=== PATIENT | male | born 1970 | race Caucasian/White ===

== ENCOUNTER 2019-07-10 10:43 | Day surgery (SDC) | payer OTHER ==
[~2019-07-10] VITALS: Ht 185.4 cm; Wt 119.7 kg
[~2019-07-10 10:43] MED LIST: LIDOCAINE 2% INJ 100 MG/5 ML SDV (FOR ANES.) As Ordered ONE; OMEP40CA97 PO
[2019-07-10] MEDS ORDERED: fentaNYL 100 MCG/2 ML INJECTION (J3010) As Ordered ONE (12:28)
[2019-07-10] MEDS ORDERED: NS 1,000 ML IV ONE (12:30)
[2019-07-10] MEDS ORDERED: propofoL 200 MG/20 ML VIAL As Ordered ONE ×2 (13:11→13:28)
--- NOTE | 2019-07-10 13:56 | ROOR ---
Patient Name: Marino Hope Procedure Date: 07/10/2019 1:03 PM Date of : 1970 Age: 48 Room: [facility] Gender: Male Note Status: Finalized Procedure: Upper GI endoscopy Indications: Heartburn, Suspected gastro-esophageal reflux disease Providers: Bob Akbar MD Referring MD: Ric Carrera MD Requesting Provider: Medicines: Monitored Anesthesia Care Complications: No immediate complications. Procedure: Pre-Anesthesia Assessment: - Prior to the procedure, a History and Physical was performed, and patient medications and allergies were reviewed. The patient is competent. The risks and benefits of the procedure and the sedation options and risks were discussed with the patient. All questions were answered and informed consent was obtained. Patient identification and proposed procedure were verified by the physician, the nurse and the anesthesiologist in the procedure room. Mental Status Examination: alert and oriented. Airway Examination: normal oropharyngeal airway and neck mobility. Respiratory Examination: clear to auscultation. CV Examination: normal. Prophylactic Antibiotics: The patient does not require prophylactic antibiotics. Prior Anticoagulants: The patient has taken no previous anticoagulant or antiplatelet agents. ASA Grade Assessment: II - A patient with mild systemic disease. After reviewing the risks and benefits, the patient was deemed in satisfactory condition to undergo the procedure. The anesthesia plan was to use monitored anesthesia care (MAC). Immediately prior to administration of medications, the patient was re-assessed for adequacy to receive sedatives. The heart rate, respiratory rate, oxygen saturations, blood pressure, adequacy of pulmonary ventilation, and response to care were monitored throughout the procedure. The physical status of the patient was re-assessed after the procedure. The Endoscope was introduced through the mouth, and advanced to the second part of duodenum. The upper GI endoscopy was accomplished without difficulty. The patient tolerated the procedure well. Findings: LA Grade C (one or more mucosal breaks continuous between tops of 2 or more mucosal folds, less than 75% circumference) esophagitis with no bleeding was found 34 to 37 cm from the incisors. Biopsies were taken with a cold forceps for histology. Verification of patient identification for the specimen was done by the physician and nurse using the patient's name, date and medical record number. Estimated blood loss was minimal. Scattered mild inflammation characterized by erythema, friability and granularity was found in the gastric antrum. Biopsies were taken with a cold forceps for Helicobacter pylori testing. The duodenal bulb and second portion of the duodenum were normal. Impression: - LA Grade C reflux esophagitis. Rule out Sifuentes's esophagus. Biopsied. - Gastritis. Biopsied. - Normal duodenal bulb and second portion of the duodenum. Recommendation: - Patient has a contact number available for emergencies. The signs and symptoms of potential delayed complications were discussed with the patient. Return to normal activities tomorrow. Written discharge instructions were provided to the patient. - High fiber diet. - Continue present medications. - Use Protonix (pantoprazole) 40 mg PO twice daily - to be taken in morning (1/2 hour before breakfast) and at bedtime ( atleast 3 hours after last meal) for 3 months. - Follow an antireflux regimen. - Await pathology results. - Repeat upper endoscopy in 3 months to check healing and for surveillance based on pathology results. - Telephone GI clinic for pathology results in 2 weeks. - Return to primary care physician. Bob Akbar MD Bob Akbar MD 07/10/2019 1:56:27 PM Electronically signed by Bob Akbar MD Number of Addenda: 0 Note Initiated On: 07/10/2019 1:03 PM Estimated Blood Loss: Estimated blood loss was minimal.
--- NOTE | 2019-07-10 14:00 | ROOR ---
Patient Name: Marino Hope Procedure Date: 07/10/2019 1:03 PM Date of : 1970 Age: 48 Room: [facility] Gender: Male Note Status: Finalized Procedure: Colonoscopy Indications: Screening in patient at increased risk: Colorectal cancer in father before age 60 Providers: Bob Akbar MD Referring MD: Ric Carrera MD Requesting Provider: Medicines: Monitored Anesthesia Care Complications: No immediate complications. Procedure: Pre-Anesthesia Assessment: - Prior to the procedure, a History and Physical was performed, and patient medications and allergies were reviewed. The patient is competent. The risks and benefits of the procedure and the sedation options and risks were discussed with the patient. All questions were answered and informed consent was obtained. Patient identification and proposed procedure were verified by the physician, the nurse and the anesthesiologist in the procedure room. Mental Status Examination: normal. Airway Examination: normal oropharyngeal airway and neck mobility. Respiratory Examination: clear to auscultation. CV Examination: normal. Prophylactic Antibiotics: The patient does not require prophylactic antibiotics. Prior Anticoagulants: The patient has taken no previous anticoagulant or antiplatelet agents. ASA Grade Assessment: II - A patient with mild systemic disease. After reviewing the risks and benefits, the patient was deemed in satisfactory condition to undergo the procedure. The anesthesia plan was to use monitored anesthesia care (MAC). Immediately prior to administration of medications, the patient was re-assessed for adequacy to receive sedatives. The heart rate, respiratory rate, oxygen saturations, blood pressure, adequacy of pulmonary ventilation, and response to care were monitored throughout the procedure. The physical status of the patient was re-assessed after the procedure. The Colonoscope was introduced through the anus and advanced to the cecum, identified by appendiceal orifice and ileocecal valve. The colonoscopy was performed without difficulty. The patient tolerated the procedure well. The quality of the bowel preparation was good. The ileocecal valve, appendiceal orifice, and rectum were photographed. Scope insertion time was 3 minutes. Scope withdrawal time was 9 minutes. The total duration of the procedure was 12 minutes. Findings: The perianal and digital rectal examinations were normal. The terminal ileum appeared normal. A diminutive polyp was found in the ascending colon. The polyp was sessile. The polyp was removed with a cold biopsy forceps. Resection and retrieval were complete. Verification of patient identification for the specimen was done by the physician and nurse using the patient's name, date and medical record number. Estimated blood loss was minimal. Non-bleeding external and internal hemorrhoids were found during retroflexion. The hemorrhoids were small. No other significant abnormalities were identified in a careful examination of the remainder of the colon. Impression: - The examined portion of the ileum was normal. - One diminutive polyp in the ascending colon, removed with a cold biopsy forceps. Resected and retrieved. - Non-bleeding external and internal hemorrhoids. Recommendation: - Patient has a contact number available for emergencies. The signs and symptoms of potential delayed complications were discussed with the patient. Return to normal activities tomorrow. Written discharge instructions were provided to the patient. - High fiber diet. - Continue present medications. - Await pathology results. - Repeat colonoscopy in 5 years for surveillance based on pathology results and due to family history of colon cancer. - Telephone GI clinic for pathology results in 2 weeks. - Return to primary care physician. Bob Akbar MD Bob Akbar MD 07/10/2019 1:59:51 PM Electronically signed by Bob Akbar MD Number of Addenda: 0 Note Initiated On: 07/10/2019 1:03 PM Estimated Blood Loss: Estimated blood loss was minimal.
[2019-07-10 14:15] VITALS: BP 139/95
== END 2019-07-10 14:16 | disposition home or self-care (01) ==
LOC: M OPP 10:43
PROVIDERS: ATTEND Internal Medicine Gastroenterology
DX: Z12.11 Encounter for screening for malignant neoplasm of colon (principal); Z80.0 Family history of malignant neoplasm of digestive organs; K64.8 Other hemorrhoids; D12.2 Benign neoplasm of ascending colon; K29.70 Gastritis, unspecified, without bleeding; R12 Heartburn; K20.8 Other esophagitis; F17.210 Nicotine dependence, cigarettes, uncomplicated
CPT/HCPCS: 43239; 45380; 88305; J3010

== ENCOUNTER 2020-12-12 12:39 | Emergency (ER) | payer OTHER ==
[~2020-12-12] VITALS: Ht 185.4 cm; Wt 115.4 kg
[2020-12-12 12:39] VITALS: BP 143/87
[~2020-12-12 12:39] MED LIST changes: -LIDOCAINE 2% INJ 100 MG/5 ML SDV (FOR ANES.) As Ordered ONE; +OMEP40CA4 PO; -OMEP40CA97 PO
== END 2020-12-12 15:07 | disposition left against medical advice (07) ==
LOC: M ED 12:39
DX: Z53.21 Procedure and treatment not carried out due to patient leaving prior to being seen by health care provider (principal)

== ENCOUNTER → 2023-08-13 | Outpatient (CLI) | payer OTHER | LOC: M PLAIMG 08:05 | PROVIDERS: ATTEND Pain Medicine Interventional Pain Medicine | DX: M51.36 Other intervertebral disc degeneration, lumbar region (principal) ==